=== PATIENT | male | born 1980 | race Caucasian/White ===

== ENCOUNTER 2018-08-01 14:16 | Emergency (ER) | payer OTHER ==
[~2018-08-01] VITALS: Ht 172.7 cm; Wt 74.0 kg
[2018-08-01] MEDS ORDERED: MAALOX/HYOSCYAMINE/LIDOCAINE 45 ML BTL PO ONE (14:30)
[2018-08-01] MEDS ORDERED: FAMOTIDINE 20 MG TABLET PO ONE (14:30)
[2018-08-01] MEDS ORDERED: ONDANSETRON ODT 4 MG PO ONE (14:30)
[2018-08-01] MEDS ORDERED: FAMOTIDINE 20 MG TABLET ONE (14:43)
[2018-08-01] MEDS ORDERED: ONDANSETRON ODT 4 MG ONE (14:43)
[2018-08-01] MEDS ORDERED: MAALOX/HYOSCYAMINE/LIDOCAINE 45 ML BTL ONE (14:43)
[2018-08-01 15:03] LABS: BASOPHILS # (AUTO) 0.03 x10^3/uL (0-0.1); BASOPHILS % (AUTO) 0 % (0-1); EOSINOPHILS % (AUTO) 1 % (1-7); LYMPHOCYTES # (AUTO) 1.34 x10^3/uL (1-3.4); LYMPHOCYTES % (AUTO) 11 % (22-44); MD NO; MEAN CORPUSCULAR HEMOGLOBIN 30.3 pg (27.5-34.5); MEAN CORPUSCULAR HGB CONC 34.2 g/dL (33.2-36.2); MEAN CORPUSCULAR VOLUME 88.6 fL (81-97); MEAN PLATELET VOLUME 9.1 fL (7.4-10.4); MONOCYTES # (AUTO) 0.43 x10^3/uL (0.2-0.8); MONOCYTES % (AUTO) 4 % (2-9); NEUTROPHILS # (AUTO) 10.04 x10^3/uL (1.8-6.8); NEUTROPHILS % (AUTO) 84 % (42-75); PLATELET COUNT 238 x10^3/uL (130-400); RED BLOOD COUNT 5.43 x10^6/uL (4.38-5.82); RED CELL DISTRIBUTION WIDTH 13.7 % (9.4-14.8)
[2018-08-01 15:13] LABS: ALANINE AMINOTRANSFERASE 73 U/L (12-78); ALBUMIN 3.7 g/dL (3.4-5.0); ANION GAP 7 mmol/L (5-15); CALCIUM 8.2 mg/dL (8.5-10.1); CHLORIDE 109 mmol/L (98-107)
[2018-08-01 15:14] LABS: ALKALINE PHOSPHATASE 104 U/L (45-117); BILIRUBIN,TOTAL 0.5 mg/dL (0.2-1.0); CREATININE 1.08 mg/dL (0.7-1.3); TOTAL PROTEIN 7.5 g/dL (6.4-8.2); TROPONIN I < 0.015 ng/mL (0.000-0.045)
[2018-08-01 16:41] VITALS: BP 134/78
[2018-08-01] MEDS ORDERED: KETOROLAC 30 MG/1 ML ONE (16:42)
[2018-08-01] MEDS ORDERED: HYDROcodone/APAP 5/325 TABLET ONE (16:42)
== END 2018-08-01 16:48 | disposition home or self-care (01) ==
LOC: ED 15:12
DX: R07.2 Precordial pain (principal); R11.0 Nausea; K21.9 Gastro-esophageal reflux disease without esophagitis
CPT/HCPCS: 36415; 71046; 80053; 84484; 85025; 93005; 99285

== ENCOUNTER → 2018-09-28 | Outpatient (CLI) | payer OTHER ==
[~2018-09-28] MED LIST: GADOBUTROL 7.5 MMOL/7.5 ML PFS ONE
[2018-09-28 09:40] LABS: CREATININE 0.86 mg/dL (0.7-1.3)
== END | disposition home or self-care (01) ==
LOC: RAD 08:53
PROVIDERS: ATTEND Family Medicine Adult Medicine
DX: J32.0 Chronic maxillary sinusitis (principal)
CPT/HCPCS: 36415; 70553; 82565; A9585